=== PATIENT | male | born 1985 | race Caucasian/White ===

== ENCOUNTER → 2024-10-05 09:57 | Outpatient (CLI) | payer OTHER, SELFPAY | PROVIDERS: Referring Provider Physician Assistant; Visit Provider Physician Assistant | DX: J02.9 Acute pharyngitis, unspecified (principal) | CPT/HCPCS: 87070 ==

== ENCOUNTER 2024-12-09 18:53 | Emergency (ER) | payer OTHER, SELFPAY ==
[2024-12-09 19:07] VITALS: BP 179/80; PULSE 92; RESP 20; TEMP 37.2; O2SAT 95; BMI 38.2
[2024-12-09 19:33] VITALS: PULSE 102; O2SAT 96
[2024-12-09 19:36] LABS: Strep Grp A by PCR Rapid Negative (Negative)
--- NOTE | 2024-12-09 19:50 | ED_ITS ---
HPI - URI/Sore Throat General Chief Complaint: Upper Respiratory Symptoms Stated Complaint: swollen uvula w white spots Time Seen by Provider: 12/09/24 19:42 Source: patient Mode of arrival: Ambulatory History of Present Illness HPI Narrative: Patient is a 39-year-old male without significant past medical history presenting today with 3 days uvula swelling. He reports that there is some white stuff on their but he has been eating cashews for the last 3 days. He was mild fever he was tolerating fluids and secretions reports his immunizations are up-to-date. Related Data Previous Rx's Medication Instructions Recorded nystatin 100,000 unit/mL oral 5 ml PO QID #250 mL 12/09/24 suspension prednisone 20 mg tablet 20 mg PO DAILY #5 tabs 12/09/24 Allergies Allergy/AdvReac Type Severity Reaction Status Date / Time No Known Drug Allergies Allergy Verified 10/05/24 09:55 Patient History Social History Smoking Status: Never smoker Smoking Status: Never smoker Alcohol type: beer and hard liquor Exam Initial Vital Signs Initial Vital Signs: Vital Signs Temperature 98.9 F 12/09/24 19:07 Pulse Rate 92 H 12/09/24 19:07 Respiratory Rate 20 12/09/24 19:07 Blood Pressure 179/80 H 12/09/24 19:07 Pulse Oximetry 95 12/09/24 19:07 Oxygen Delivery Method Room Air 12/09/24 19:07 GENERAL: Alert well-appearing 3-year-old male and in no acute distress. HEENT: Head atraumatic,EOMI, pupils reactive, face symmetric, moist mucous membranes PHARYNX: Uvula swelling with some white film on it it was quite long no significant airway obstruction no tonsillar swelling CARDIOVASCULAR: Regular rate and rhythm without murmurs, rubs or gallops. RESPIRATORY: Breath sounds equal bilaterally, no wheezes rales or rhonchi. ABDOMEN: Soft, nontender. Normoactive bowel sounds all 4 quadrants. No guarding or rebound. EXTREMITIES: Normal range of motion, no clubbing or edema. Neurovascularly intact NEUROLOGICAL: Alert and oriented x4.Normal gait and speech. Cranial nerves II through XII grossly intact. SKIN: Warm, dry, no laceration, no petechiae, no rashes or lesions. Course Orders Ordered: ED Orders 12/09/24 19:10 Strep Grp A by PCR Rapid Stat Strep Screen Stat Throat Culture Stat 12/09/24 19:28 Urinalysis and Microscopic Stat 12/09/24 20:10 CBC Auto Diff [Complete Blood Count AUTO DIFF] Stat CMP [Comprehensive Metabolic Panel] Stat 12/09/24 20:30 Covid-19 + FLU A/B + RSV - PCR Stat Discontinued Medications Dexamethasone (Dexamethasone 10 Mg/Ml Vial) 10 mg IV NOW ONE Stop: 12/09/24 20:04 Last Admin: 12/09/24 20:22 Dose: 10 mg Documented By: DOTTIE Sodium Chloride (Normal Saline 0.9%) 1,000 mls @ 1,000 mls/hr IV BOLUS ONE Stop: 12/09/24 21:02 Last Infusion: 12/09/24 21:19 Dose: Infused Documented By: Admin: 12/09/24 20:22 Dose: 1,000 mls/hr Documented By: DOTTIE Vital Signs Vital signs: Vital Signs - 8 hr 12/09/24 19:07 12/09/24 19:33 12/09/24 20:10 Temperature 98.9 F Pulse Rate 92 H 102 H 96 H Respiratory Rate 20 Blood Pressure 179/80 H Pulse Oximetry 95 96 97 Oxygen Delivery Method Room Air 12/09/24 20:30 12/09/24 21:00 Temperature Pulse Rate 87 81 Respiratory Rate Blood Pressure 150/68 H Pulse Oximetry 100 95 Oxygen Delivery Method MDM - URI/Sore Throat Lab Data 12/09/24 20:10 12/09/24 20:10 Labs: Lab Results 12/09/24 12/09/24 12/09/24 Range/Units 19:10 19:28 20:10 WBC 8.6 (4.5-11.0) X10^3/uL RBC 5.65 (4.5-5.9) X10^6/uL Hgb 15.8 (13.5-17.5) g/dL Hct 46.7 (41-53) % MCV 82.6 (80-100) fL MCH 28.0 (26-34) PG MCHC 33.9 (30-36) % RDW 14.2 (11.6-14.8) % Plt Count 212 (150-400) X10^3/uL Neut % (Auto) 75.2 H (50-75) % Lymph % (Auto) 13.9 L (25-40) % [facility] % (Auto) 8.4 (3-14) % Eos % (Auto) 2.0 (2-4) % Baso % (Auto) 0.5 (0-2) % Neut # (Auto) 6500 (1627-8864) /uL Lymph # (Auto) 1200 (5400-2945) /uL [facility] # (Auto) 700 (0-900) /uL Eos # (Auto) 200 (0-450) /uL Baso # (Auto) 0 (0-100) /uL Sodium 137 (137-145) mmol/L Potassium 4.0 (3.4-5.1) mmol/L Chloride 105 (98-107) mmol/L Carbon Dioxide 24 (22-32) mmol/L BUN 10 (9-20) mg/dL Creatinine 0.66 (0.66-1.25) mg/dL Estimated GFR > 60 (>60) mL/min BUN/Creatinine Ratio 15.2 (6-22) Glucose 162 H (70-100) mg/dL Calcium 8.5 (8.4-10.2) mg/dL Total Bilirubin 0.6 (0.2-1.3) mg/dL AST 34 (17-59) IU/L ALT 64 H (<50) IU/L Alkaline Phosphatase 89 (38-126) U/L Total Protein 7.2 (6.3-8.2) g/dL Albumin 4.2 (3.5-5.0) g/dL Globulin 3.0 (1.7-4.1) g/dL Albumin/Globulin Ratio 1.4 (1.0-2.8) Urine Color Yellow Urine Appearance Clear Urine pH 6.0 (4.5-8.0) Ur Specific [place] >=1.030 H (1.000-1.035) Urine Protein 2+ H (Negative) Urine Glucose (UA) 1+ H (Negative) g/dL Urine Ketones Trace H (NEGATIVE) Urine Occult Blood 2+ H (Negative) Urine Nitrate Negative (Negative) Urine Bilirubin Negative (NEGATIVE) Urine Urobilinogen 1.0 (0.2) E.U./dL Ur Leukocyte Esterase Negative (NEGATIVE) Urine RBC 0-1/hpf (0-5/HPF) Urine WBC 0-1/hpf (0-5/HPF) Ur Squamous Epith Cells 0-1 /hpf (0-5/HPF) Urine Bacteria Few (2-10) H (None) Urine Yeast 1-5/hpf H (None) Ur Culture Indicated? Cult not indicated Vol Urine Centrifuged 10ml (spun) SARS-CoV-2 (PCR) (Negative) Influenza A (RT-PCR) (NEGATIVE) Influenza B (RT-PCR) (NEGATIVE) RSV (PCR) (Negative) Group A Strep (PCR) Negative (Negative) 12/09/24 Range/Units 20:30 WBC (4.5-11.0) X10^3/uL RBC (4.5-5.9) X10^6/uL Hgb (13.5-17.5) g/dL Hct (41-53) % MCV (80-100) fL MCH (26-34) PG MCHC (30-36) % RDW (11.6-14.8) % Plt Count (150-400) X10^3/uL Neut % (Auto) (50-75) % Lymph % (Auto) (25-40) % [facility] % (Auto) (3-14) % Eos % (Auto) (2-4) % Baso % (Auto) (0-2) % Neut # (Auto) (9298-0883) /uL Lymph # (Auto) (1386-5213) /uL [facility] # (Auto) (0-900) /uL Eos # (Auto) (0-450) /uL Baso # (Auto) (0-100) /uL Sodium (137-145) mmol/L Potassium (3.4-5.1) mmol/L Chloride (98-107) mmol/L Carbon Dioxide (22-32) mmol/L BUN (9-20) mg/dL Creatinine (0.66-1.25) mg/dL Estimated GFR (>60) mL/min BUN/Creatinine Ratio (6-22) Glucose (70-100) mg/dL Calcium (8.4-10.2) mg/dL Total Bilirubin (0.2-1.3) mg/dL AST (17-59) IU/L ALT (<50) IU/L Alkaline Phosphatase (38-126) U/L Total Protein (6.3-8.2) g/dL Albumin (3.5-5.0) g/dL Globulin (1.7-4.1) g/dL Albumin/Globulin Ratio (1.0-2.8) Urine Color Urine Appearance Urine pH (4.5-8.0) Ur Specific [place] (1.000-1.035) Urine Protein (Negative) Urine Glucose (UA) (Negative) g/dL Urine Ketones (NEGATIVE) Urine Occult Blood (Negative) Urine Nitrate (Negative) Urine Bilirubin (NEGATIVE) Urine Urobilinogen (0.2) E.U./dL Ur Leukocyte Esterase (NEGATIVE) Urine RBC (0-5/HPF) Urine WBC (0-5/HPF) Ur Squamous Epith Cells (0-5/HPF) Urine Bacteria (None) Urine Yeast (None) Ur Culture Indicated? Vol Urine Centrifuged SARS-CoV-2 (PCR) Negative (Negative) Influenza A (RT-PCR) Flu a negative (NEGATIVE) Influenza B (RT-PCR) Flu b negative (NEGATIVE) RSV (PCR) Negative (Negative) Group A Strep (PCR) (Negative) Urine Dip Bedside Urine Glucose 250 mg/dl Bedside Urine Bilirubin - Negative Bedside Urine Ketone - Negative Urine Specific [place] 1.025 Bedside Urine Occult Blood ++ Bedside Urine pH 6.0 Bedside Urine Protein +++ 300 Bedside Urine Urobilinogen +/- 1mg Bedside Urine Nitrite - Negative Bedside Urine Leukocytes - Negative Esterase MDM Narrative Medical decision making narrative: Patient is a 39-year-old male not currently on any medications presenting today with uvula swelling last 2-3 days. He is sleeping easily in the emergency department managing his secretions no evidence of airway obstruction. There is some white on the uvula I suspect thrush. He was found to have glucose in his urine and glucose of 162. Suspicion for underlying diabetes but no evidence of DKA significant hyperglycemia. Other blood work is reviewed he has no leukocytosis anemia electrolyte abnormality POC strep is negative He has been vaccinated, unlikely Haemophilus influenzae. He was given 1 L normal saline dexamethasone along with prescription for nystatin. I did discuss with patient that he needs further PCP workup for possible underlying diabetes with now thrush. Discharge Plan Departure Patient Disposition: Home Clinical Impression: Acute epiglottitis, Oral thrush, Acute hyperglycemia Instructions: DI for Epiglottitis-Adult, Thrush-Adult Activity Restrictions/Additional Instructions: *You have been diagnosed with epiglottitis, thrush, elevated glucose *What to do: At this time you do have a large uvula going down. With medications. I do strongly recommend you follow up with primary care provider glucose in the urine and slightly elevated glucose on blood work concerning for diabetes *Continue to take medications as directed Nystatin swish and swallow Prednisone 20 mg once a day for 3 days *Follow up with your primary care provider in 2-3 days or call [phone] [and follow up with ortho, urology etc] *Return to ER if you should have [such as] [or] any new, worsening or concerning symptoms Prescriptions: New nystatin 100,000 unit/mL suspension 5 ml PO QID Qty: 250 0RF Rx Instructions: swish and swallow prednisone 20 mg tablet 20 mg PO DAILY Qty: 5 0RF Referrals: Miscellaneous,Doctor, MD [Primary Care Provider] - Stand Alone Forms: Patient Portal/API/Survey
[2024-12-09 19:55] LABS: Appearance Urine UA CLEAR; Bilirubin Urine UA NEGATIVE (NEGATIVE); Color Urine UA YELLOW; Glucose Urine UA 1+ g/dL (Negative); Ketones Urine UA TRACE (NEGATIVE); Leukocyte Esterase Urine UA NEGATIVE (NEGATIVE); Nitrite Urine UA NEGATIVE (Negative); Occult Blood Urine UA 2+ (Negative); Protein Urine UA 2+ (Negative); Specific Gravity Urine UA >=1.030 (1.000-1.035)
[2024-12-09 20:04] LABS: Bacteria Urine Few (2-10); Culture Indicated Urine Cult Not Indicated; RBC Urine 0-1/HPF (0-5/HPF); Squamous Epithelial Cell Urine 0-1 /HPF (0-5/HPF); Urine Volume 10mL (spun); WBC Urine 0-1/HPF (0-5/HPF)
[2024-12-09 20:10] VITALS: PULSE 96; O2SAT 97
[2024-12-09] MEDS: SODIUM CHLORIDE 0.9% 1,000 ML 1000 ML IV (20:22)
[2024-12-09] MEDS: DEXAMETHASONE 10 MG/ML VIAL IV (20:22)
[2024-12-09 20:23] LABS: Add Manual Diff / Slide Review NO; Basophils Absolute Auto 0 /uL (0-100); Basophils Percent Auto 0.5 % (0-2); Eosinophils Absolute Auto 200 /uL (0-450); Hematocrit 46.7 % (41-53); Hemoglobin 15.8 g/dL (13.5-17.5); Lymphocytes Absolute Auto 1200 /uL (1100-4500); Lymphocytes Percent Auto 13.9 % (25-40); Mean Corpuscular HGB Conc 33.9 % (30-36); Mean Corpuscular Volume 82.6 fL (80-100); Monocytes Absolute Auto 700 /uL (0-900); Monocytes Percent Auto 8.4 % (3-14); Neutrophils Absolute Auto 6500 /uL (1500-7000); Neutrophils Percent Auto 75.2 % (50-75); Platelet Count 212 X10^3/uL (150-400); Red Blood Cell Count 5.65 X10^6/uL (4.5-5.9); Red Cell Distribution Width 14.2 % (11.6-14.8); White Blood Cell Count 8.6 X10^3/uL (4.5-11.0)
[2024-12-09 20:30] VITALS: PULSE 87; O2SAT 100
[2024-12-09 20:34] LABS: Alanine Aminotransferase 64 IU/L (<50); Albumin 4.2 g/dL (3.5-5.0); Albumin Globulin Ratio 1.4 (1.0-2.8); Alkaline Phosphatase 89 U/L (38-126); Aspartate Aminotransferase 34 IU/L (17-59); BUN Creatinine Ratio 15.2 (6-22); Bilirubin Total 0.6 mg/dL (0.2-1.3); Blood Urea Nitrogen 10 mg/dL (9-20); Calcium 8.5 mg/dL (8.4-10.2); Carbon Dioxide 24 mmol/L (22-32); Chloride 105 mmol/L (98-107); Estimated Glomerular Filt Rate > 60 mL/min (>60); Glucose 162 mg/dL (70-100); HEMOLYSIS 15 (0-50); Sodium 137 mmol/L (137-145); Total Protein 7.2 g/dL (6.3-8.2)
[2024-12-09 21:00] VITALS: BP 150/68; PULSE 81; O2SAT 95
[2024-12-09 21:13] LABS: Influenza A - CEPHEID Flu A NEGATIVE (NEGATIVE); Influenza B - CEPHEID Flu B NEGATIVE (NEGATIVE); Respiratory Syncytial Virus Negative (Negative)
[2024-12-09 21:23] LABS: COVID-19 CEPHEID 4-PLEX PCR Negative (Negative)
== END 2024-12-09 22:15 | disposition home or self-care (01) ==
PROVIDERS: Emergency Provider Emergency Medicine
DX: J05.10 Acute epiglottitis without obstruction (principal); B37.0 Candidal stomatitis; R73.9 Hyperglycemia, unspecified
CPT/HCPCS: 0241U; 36415; 80053; 81001; 81003; 85025; 87070; 87081; 87651; 96361; 96374; 99284; J1100